=== PATIENT | male | born 1960 | race African-American/Black ===

== ENCOUNTER 2017-02-04 08:33 | Inpatient (IN) | payer OTHER ==
[~2017-02-04] VITALS: Ht 182.9 cm; Wt 89.7 kg
[2017-02-04] MEDS ORDERED: METF500T4 PO (08:39)
[2017-02-04 08:57] LABS: GLUCOSE,POINT OF CARE 218 MG/DL (70-110)
[2017-02-04 09:14] LABS: BASOPHILS % (AUTO) 0.2 % (0.0-2.0); EOSINOPHILS % (AUTO) 0.5 % (1.0-6.0); HEMATOCRIT 49.4 % (41-53); LYMPHOCYTES # (AUTO) 1.1 K/uL (1.0-4.8); LYMPHOCYTES % (AUTO) 21.9 % (22.0-44.0); MEAN CORPUSCULAR HGB CONC 32.4 G/dL (31.0-37.0); MEAN CORPUSCULAR VOLUME 93 fL (80-100); MONOCYTES # (AUTO) 0.5 K/uL (0.1-1.0); NEUTROPHILS # (AUTO) 3.5 K/uL (1.8-7.7); NEUTROPHILS % (AUTO) 67.4 % (40.0-70.0); PLATELET COUNT (AUTO) 213 K/uL (150-450); RED BLOOD CELL COUNT(AUTO) 5.33 MIL/uL (4.50-5.90); WHITE BLOOD COUNT (AUTO) 5.2 K/uL (4.5-11.0)
[2017-02-04] MEDS ORDERED: ONDANSETRON HCL 4 MG/2 ML VIAL IVP ONE (09:15)
[2017-02-04] MEDS ORDERED: SODIUM CHLORIDE 0.9% 1,000 ML IV ONE ×2 (09:15→10:00)
[2017-02-04] MEDS ORDERED: KETOROLAC TROMETHAMINE 30 MG/ML VIAL IVP ONE (09:15)
[2017-02-04 09:25] LABS: ANION GAP 21 mmol/L (8-16); CALCIUM, TOTAL 8.9 mg/dL (8.8-10.5); CARBON DIOXIDE 20 mmol/L (22-29); CHLORIDE 93 mmol/L (98-107); CREATININE 0.89 mg/dL (0.60-1.30); GLOMERULAR FILTR. RATE CALC > 60 mL/min (>60); POTASSIUM 3.7 mmol/L (3.5-5.1); SODIUM SERUM 134 mmol/L (136-145); UREA NITROGEN, BLOOD 15 mg/dL (7-18)
[2017-02-04 09:31] LABS: ALANINE AMINOTRANSFERASE 91 U/L (12-78); ALBUMIN 3.9 g/dL (3.4-5.0); ASPARTATE AMINOTRANSFERASE 67 U/L (15-37); BILIRUBIN,TOTAL 0.9 mg/dL (0.1-1.0); TOTAL PROTEIN, SERUM 7.9 g/dL (6.4-8.2)
[2017-02-04] MEDS ORDERED: MORPHINE SULFATE 4 MG/ML SYRINGE IVP PRN (10:00)
[2017-02-04] MEDS ORDERED: ONDANSETRON HCL 4 MG/2 ML VIAL IVP PRN (10:00)
[2017-02-04] MEDS ORDERED: DEXTROSE 50%-WATER 25 GM/50 ML SYRINGE IVP PRN (10:30)
[2017-02-04] MEDS ORDERED: MAGNESIUM SULFATE 4 GM/WATER 100 ML IV PRN (10:30)
[2017-02-04] MEDS ORDERED: MAGNESIUM HYDROXIDE SUSPENSION 30 ML UDCUP PO PRN (10:30)
[2017-02-04] MEDS ORDERED: POTASSIUM CHLORIDE 20 MEQ ER TABLET PO PRN (10:30)
[2017-02-04] MEDS ORDERED: POTASSIUM CHL 10 MEQ/WATER 50 ML IV PRN (10:30)
[2017-02-04] MEDS ORDERED: MAGNESIUM SULFATE 2 GM in DEXTROSE 5%-WATER 50 ML IV PRN (10:30)
[2017-02-04] MEDS ORDERED: MAGNESIUM OXIDE 400 MG TABLET PO PRN (10:30)
[2017-02-04] MEDS: PANTOPRAZOLE SODIUM 40 MG/VIAL IVP SCH (10:31)
[2017-02-04] MEDS: SODIUM CHLORIDE 0.9% 1,000 ML IV SCH ×2 (10:31→21:14)
[2017-02-04 10:57] VITALS: BP 151/91
[2017-02-04] MEDS: MORPHINE SULFATE 2 MG/ML SYRINGE IVP PRN ×5 (12:02→23:10)
[2017-02-04 15:09] VITALS: BP 145/100
[2017-02-04 18:12] LABS: GLUCOSE,POINT OF CARE 170 MG/DL (70-110)
[2017-02-04 19:41] VITALS: BP 159/103
[2017-02-04] MEDS: DOCUSATE SODIUM 100 MG CAPSULE PO SCH (21:14)
[2017-02-04] MEDS: INSULIN ASPART 100 UNITS/ML SQ PRN (21:41)
[2017-02-05 00:39] VITALS: BP 158/90
[2017-02-05 00:47] LABS: GLUCOSE COMMENT 1 Received Meds; GLUCOSE,POINT OF CARE 204 MG/DL (70-110)
[2017-02-05] MEDS: MORPHINE SULFATE 2 MG/ML SYRINGE IVP PRN ×9 (01:10→21:30)
[2017-02-05 04:25] VITALS: BP 167/111
[2017-02-05] MEDS: INSULIN ASPART 100 UNITS/ML SQ PRN ×3 (05:34→21:32)
[2017-02-05 06:41] LABS: GLUCOSE COMMENT 1 Received Meds; GLUCOSE,POINT OF CARE 209 MG/DL (70-110)
[2017-02-05 06:42] LABS: BASOPHILS % (AUTO) 0.1 % (0.0-2.0); EOSINOPHILS % (AUTO) 0.08 % (1.0-6.0); HEMATOCRIT 45.5 % (41-53); HEMOGLOBIN 15.2 g/dL (13.5-17.5); LYMPHOCYTES # (AUTO) 0.4 K/uL (1.0-4.8); LYMPHOCYTES % (AUTO) 6.5 % (22.0-44.0); MEAN CORPUSCULAR HEMOGLOBIN 31.2 pg (26.0-34.0); MEAN CORPUSCULAR HGB CONC 33.5 G/dL (31.0-37.0); MEAN CORPUSCULAR VOLUME 93 fL (80-100); MONOCYTES # (AUTO) 0.6 K/uL (0.1-1.0); MONOCYTES % (AUTO) 10.4 % (2.0-9.0); NEUTROPHILS # (AUTO) 5.1 K/uL (1.8-7.7); NEUTROPHILS % (AUTO) 82.9 % (40.0-70.0); PLATELET COUNT (AUTO) 200 K/uL (150-450); RED BLOOD CELL COUNT(AUTO) 4.88 MIL/uL (4.50-5.90); RED CELL DISTRIBUTION WIDTH 14.7 % (11.5-14.5); WHITE BLOOD COUNT (AUTO) 6.2 K/uL (4.5-11.0)
[2017-02-05 07:11] LABS: ANION GAP 25 mmol/L (8-16); CALCIUM, TOTAL 8.2 mg/dL (8.8-10.5); CARBON DIOXIDE 12 mmol/L (22-29); CHLORIDE 95 mmol/L (98-107); CREATININE 1.09 mg/dL (0.60-1.30); GLOMERULAR FILTR. RATE CALC > 60 mL/min (>60); POTASSIUM 4.7 mmol/L (3.5-5.1); SODIUM SERUM 132 mmol/L (136-145); UREA NITROGEN, BLOOD 11 mg/dL (7-18)
[2017-02-05 07:43] VITALS: BP 156/106
[2017-02-05] MEDS: PANTOPRAZOLE SODIUM 40 MG/VIAL IVP SCH (07:58)
[2017-02-05] MEDS: DOCUSATE SODIUM 100 MG CAPSULE PO SCH ×2 (07:58→21:20)
[2017-02-05 11:10] VITALS: BP 150/104
[2017-02-05 12:07] LABS: GLUCOSE,POINT OF CARE 189 MG/DL (70-110)
[2017-02-05 15:32] VITALS: BP 136/92
[2017-02-05] MEDS: SODIUM CHLORIDE 0.9% 1,000 ML IV SCH (16:30)
[2017-02-05 16:42] LABS: GLUCOSE,POINT OF CARE 204 MG/DL (70-110)
[2017-02-05 19:21] VITALS: BP 147/102
[2017-02-05 21:32] LABS: GLUCOSE,POINT OF CARE 206 MG/DL (70-110)
[2017-02-06] MEDS: MORPHINE SULFATE 2 MG/ML SYRINGE IVP PRN ×7 (00:17→21:15)
[2017-02-06 00:19] VITALS: BP 138/96
[2017-02-06] MEDS: SODIUM CHLORIDE 0.9% 1,000 ML IV SCH (03:31)
[2017-02-06 06:07] LABS: MAGNESIUM 1.9 mg/dL (1.80-2.40)
[2017-02-06] MEDS: INSULIN ASPART 100 UNITS/ML SQ PRN ×4 (06:32→21:19)
[2017-02-06 07:25] VITALS: BP 141/103
[2017-02-06 07:51] LABS: GLUCOSE,POINT OF CARE 176 MG/DL (70-110)
[2017-02-06] MEDS: DOCUSATE SODIUM 100 MG CAPSULE PO SCH ×2 (08:32→21:19)
[2017-02-06] MEDS: PANTOPRAZOLE SODIUM 40 MG/VIAL IVP SCH (08:32)
[2017-02-06 11:15] VITALS: BP 147/96
[2017-02-06] MEDS: MULTIVITAMINS WITH MINERALS, THERAPEUTIC TABLET PO SCH (12:19)
[2017-02-06] MEDS: ACETAMINOPHEN 325 MG TABLET PO PRN ×2 (14:51→19:42)
[2017-02-06 16:12] VITALS: BP 108/71
[2017-02-06 17:47] LABS: GLUCOSE COMMENT 1 Received Meds; GLUCOSE,POINT OF CARE 221 MG/DL (70-110)
[2017-02-06 17:57] LABS: GLUCOSE COMMENT 1 Received Meds; GLUCOSE,POINT OF CARE 228 MG/DL (70-110)
[2017-02-06 19:32] VITALS: BP 145/93
[2017-02-06 23:29] VITALS: BP 124/86
[2017-02-07] MEDS: MORPHINE SULFATE 2 MG/ML SYRINGE IVP PRN ×3 (01:21→13:49)
[2017-02-07] MEDS: ACETAMINOPHEN 325 MG TABLET PO PRN ×3 (03:59→15:13)
[2017-02-07 05:00] VITALS: BP 119/68
[2017-02-07 06:07] LABS: GLUCOSE COMMENT 1 Received Meds; GLUCOSE,POINT OF CARE 330 MG/DL (70-110)
[2017-02-07 06:07] LABS: GLUCOSE COMMENT 1 Received Meds; GLUCOSE,POINT OF CARE 238 MG/DL (70-110)
[2017-02-07] MEDS: INSULIN ASPART 100 UNITS/ML SQ PRN ×2 (06:15→12:06)
[2017-02-07 07:53] VITALS: BP 140/99
[2017-02-07] MEDS: DOCUSATE SODIUM 100 MG CAPSULE PO SCH (08:28)
[2017-02-07] MEDS: MULTIVITAMINS WITH MINERALS, THERAPEUTIC TABLET PO SCH (08:30)
[2017-02-07] MEDS: PANTOPRAZOLE SODIUM 40 MG/VIAL IVP SCH (09:20)
[2017-02-07 12:01] VITALS: BP 144/98
[2017-02-07 13:47] LABS: GLUCOSE COMMENT 1 Received Meds; GLUCOSE,POINT OF CARE 327 MG/DL (70-110)
== END 2017-02-07 15:42 | disposition home or self-care (01) | DRG 282 ==
LOC: EMS 08:35 → 6N 10:32
PROVIDERS: ADMIT Internal Medicine; ATTEND Internal Medicine
DX: K85.90 Acute pancreatitis without necrosis or infection, unspecified (principal); E11.65 Type 2 diabetes mellitus with hyperglycemia; E87.8 Other disorders of electrolyte and fluid balance, not elsewhere classified; F10.20 Alcohol dependence, uncomplicated; Z59.0 Homelessness; Y90.7 Blood alcohol level of 200-239 mg/100 ml; Z91.048 Other nonmedicinal substance allergy status; Z79.84 Long term (current) use of oral hypoglycemic drugs; Z87.81 Personal history of (healed) traumatic fracture; Z83.3 Family history of diabetes mellitus
CPT/HCPCS: 82948; 82962; 83735; 96361; 96374; 96375; 96376; 97161; 99285; C9113; G0480; J1885; J2270; J2405; J3475; J7030; J7060